=== PATIENT | male | born 1965 | race African-American/Black ===

== ENCOUNTER 2021-12-16 17:04 | Emergency (ER) | payer MEDICAID, OTHER ==
[~2021-12-16] VITALS: Ht 172.7 cm; Wt 73.0 kg
[~2021-12-16 17:04] MED LIST: QUET200T
[2021-12-16] MEDS ORDERED: ONDANSETRON HCL 4MG/2ML INJ IV STA (18:43)
[2021-12-16] MEDS ORDERED: SODIUM CHLORIDE 0.9% 1,000 ML IV ONE (18:45)
[2021-12-16 19:47] LABS: BASOPHILS % 0.3 % (0.0-2.0); EOSINOPHILS % 0.1 % (0.0-5.0); HEMATOCRIT. 44.4 % (42.0-52.0); HEMOGLOBIN. 14.9 g/dL (14.0-18.0); LYMPHOCYTES % 14.3 % (20.0-50.0); MEAN CORPUSCULAR HEMOGLOBIN 28.3 pg (28.0-32.0); MEAN CORPUSCULAR VOLUME 84.4 fL (80.0-94.0); MEAN PLATELET VOLUME 8.3 fl (7.4-10.4); MONOCYTES % 9.1 % (2.0-8.0); NEUTROPHILS % 76.2 % (40.0-76.0); PLATELET 222 x1000/uL (130-400); RED BLOOD CELL COUNT 5.26 mill/uL (4.7-6.1); RED CELL DISTRIBUTION WIDTH 15.8 % (11.6-14.6)
[2021-12-16 19:54] LABS: CHLORIDE 106 mEq/L (98-107)
[2021-12-16] MEDS ORDERED: MORPHINE SULFATE 4 MG/ML CPJ (NOT FOR IM USE) IV STA (20:00)
[2021-12-16 20:48] LABS: CLARITY URINE CLEAR (CLEAR); COLOR URINE YELLOW (YELLOW); KETONES URINE 1+ (NEGATIVE); LEUKOCYTE ESTERASE URINE NEGATIVE (NEGATIVE); NITRITE URINE NEGATIVE (NEGATIVE); OCCULT BLOOD URINE TRACE (NEGATIVE); PH URINE 8.5 (4.5-8.0); PROTEIN URINE TRACE (NEGATIVE); SPECIFIC GRAVITY URINE 1.017 (1.005-1.030); UROBILINOGEN URINE 0.2 E.U./dL (0.2-1.0)
[2021-12-16 22:01] VITALS: BP 127/75
[2021-12-16] MEDS ORDERED: ONDA4TAB50 MT (22:15)
== END 2021-12-16 23:00 | disposition home or self-care (01) ==
LOC: ER 17:04
DX: K52.9 Noninfective gastroenteritis and colitis, unspecified (principal); F12.10 Cannabis abuse, uncomplicated; I49.9 Cardiac arrhythmia, unspecified; Z98.890 Other specified postprocedural states; Z85.01 Personal history of malignant neoplasm of esophagus
CPT/HCPCS: 36415; 80053; 81003; 83605; 83690; 85025; 93005; 96361; 96374; 96375; 99284; J2270; J2405; J7030

== ENCOUNTER 2022-05-19 08:14 | Emergency (ER) | payer MEDICAID ==
[~2022-05-19] VITALS: Ht 170.2 cm; Wt 67.0 kg
[~2022-05-19 08:14] MED LIST changes: +ONDA4TAB50 MT
[2022-05-19] MEDS ORDERED: NAPR-681 PO (09:23)
[2022-05-19] MEDS ORDERED: KETOROLAC 30MG/ML VIAL IM NR (09:30)
[2022-05-19 09:47] VITALS: BP 127/86
== END 2022-05-19 09:49 | disposition home or self-care (01) ==
LOC: ER 08:14
DX: S80.01XA Contusion of right knee, initial encounter (principal); V49.9XXA Car occupant (driver) (passenger) injured in unspecified traffic accident, initial encounter; Y93.89 Activity, other specified; Y92.89 Other specified places as the place of occurrence of the external cause; Y99.8 Other external cause status
CPT/HCPCS: 73560; 96372; 99283; J1885; Z7610

== ENCOUNTER 2022-09-13 04:00 | Emergency (ER) | payer MEDICAID ==
[~2022-09-13] VITALS: Ht 175.3 cm; Wt 161.9 kg
[~2022-09-13 04:00] MED LIST changes: +NAPR-681 PO
[2022-09-13 04:05] VITALS: BP 142/90; PULSE 84; RESP 16; TEMP 98.1; O2SAT 98
== END 2022-09-13 08:06 | disposition left against medical advice (07) ==
LOC: ER 04:00
DX: Z53.21 Procedure and treatment not carried out due to patient leaving prior to being seen by health care provider (principal)
CPT/HCPCS: 99281